=== PATIENT | female | born 2000 | race Caucasian/White ===

== ENCOUNTER → 2023-11-27 15:40 | Outpatient (CLI) | payer OTHER, MEDICAID, SELFPAY ==
--- NOTE | 2023-11-27 15:45 | DI.US.S_ITS ---
PROCEDURE: US SOFT TISSUE HEAD AND NECK INDICATIONS: RIGHT NECK LUMP TECHNIQUE: Real-time scanning was performed of the neck region of interest, with image documentation. COMPARISON: None. FINDINGS: There is a reniform, wider than tall lymph node in the superior right neck at the site of palpable abnormality. It measures up to 0.5 cm in maximal AP diameter, within normal limits. Appropriate trace hilar vascularity. No significant cortical vascular flow. No other sonographic abnormalities in the neck. IMPRESSION: Benign-appearing, normal size lymph node corresponding to the palpable abnormality in the right neck. Dictated by: Miroslava Almaguer M.D. on 11/28/2023 at 9:19 Approved by: Miroslava Almaguer M.D. on 11/28/2023 at 9:21
== END ==
LOC: US 15:44
PROVIDERS: PCP Student in an Organized Health Care Education/Training Program; Referring Provider Student in an Organized Health Care Education/Training Program; Visit Provider Student in an Organized Health Care Education/Training Program
DX: R22.1 Localized swelling, mass and lump, neck (principal)
CPT/HCPCS: 76536

== ENCOUNTER → 2024-09-28 16:05 | Outpatient (CLI) | payer OTHER, SELFPAY ==
[2024-09-28 18:13] LABS: Progesterone, Total 13.80 ng/mL
== END ==
PROVIDERS: Family Provider Student in an Organized Health Care Education/Training Program; PCP Student in an Organized Health Care Education/Training Program; Referring Provider Student in an Organized Health Care Education/Training Program; Visit Provider Student in an Organized Health Care Education/Training Program
DX: N97.0 Female infertility associated with anovulation (principal)
CPT/HCPCS: 36415; 84144

== ENCOUNTER 2024-11-25 08:15 | Outpatient (RCR) | payer OTHER, SELFPAY ==
--- NOTE | 2024-09-23 12:47 | PT.OIE ---
Current Diagnoses Pain in right ankle and joints of right foot (09/23/24) Visit Care Team Role Provider Type Anastasiia Deluca DO Family Provider Non-Staff Primary Care Provider Specialty: Internal Medicine Address: [address] [place], [address] Email: Manish Porras DPM Attending Provider Non-Staff Referring Provider Specialty: Podiatry Address: [address] [place], [address] Email: Physical Therapy Initial Evaluation PT-OP-A Visit Information Start: 09/23/24 09:07 Freq: Status: Active Protocol: Document 09/23/24 09:08 INFO PRINT PRESS OPERATOR (Rec: 09/23/24 11:10 INFO PRINT PRESS OPERATOR Laptop) Out-Patient Physical Therapy Visit Information Visit Information Visit Type Initial Evaluation Visit Start Time 09:05 Visit Stop Time 10:09 Visit Number 1 Number of HEALTHCARE MARKET CONSULTANT Visits 0 Evaluation Information Evaluation Date 09/23/24 PT-OP-B Current Condition Start: 09/23/24 09:07 Freq: Status: Active Protocol: Document 09/23/24 09:08 INFO PRINT PRESS OPERATOR (Rec: 09/23/24 11:10 INFO PRINT PRESS OPERATOR Laptop) Current Condition History of Current Condition Onset Date July 2024 Current Complaints R high ankle sprain, R ankle pain and stiffness History of Current Pt amb into session with antalgic gait pattern without Condition AD and with R supportive ankle brace. Playing pickleball in July, jumped up and landed on R foot and heard it pop 3 times with pain and swelling immediately , went to urgent care and X-ray revealed no fractures, then went to podiatry who stated ankle sprain probably between grade 2-3 and referred to PT. Urgent care gave her a walking boot and crutches to be NWB for first week and then used just walking boot for 3 weeks but caused hip and knee pain. Podiatry gave her a supportive ankle brace on September 02 and has been wearing since and reports ankle feels much better. Has not been taking pain meds or icing, reports she elevates ankle every once in a while. Pt lives in a 3-story town home and has 2 flights of stairs to negotiate with B HRs, reports stairs are most difficult day to day activity to perform, also struggles with donning socks and shoes d/t pain with bending of foot. Prior to injury, pt runs 3x/wk 2-3 miles each, plays volleyball once a week , hiking, and walking on the beach. Prior Treatments and X ray negative for fx Tests Treatment Goals Patient/Caregiver To reduce pain and gain range of motion to return to Goals prior activities PT-OP-C Subjective Start: 09/23/24 09:07 Freq: Status: Active Protocol: Document 09/23/24 09:08 INFO PRINT PRESS OPERATOR (Rec: 09/23/24 11:10 INFO PRINT PRESS OPERATOR Laptop) Patient Questionnaires Lower Extremity Functional Scale LEFS Score 50 LEFS Impairment 20 to 39% Impaired (Score 48-62) OP-PT Pain Assessment Comments Pain Comments Restin/10 R ant ankle Walkin/10 R ant ankle PT-OP-F Manual Assessment Start: 09/23/24 09:07 Freq: Status: Active Protocol: Document 09/23/24 09:08 INFO PRINT PRESS OPERATOR (Rec: 09/23/24 11:10 INFO PRINT PRESS OPERATOR Laptop) Manual Assessments Other Manual Assessments Other Manual normal talus mobility, pain with gentle PA to distal Assessments fibula/lateral malleolus, TTP and decreased soft tissue mobility to fibularis muscles bellies and tendons and ant tib muscle bellies and tendons. Decreased soft tissue mobility to gastroc. Mild-moderate edema to B malleoli lateral>medial with hypersensitivity around lateral malleolus PT-OP-G Mobility & Gait Start: 09/23/24 09:07 Freq: Status: Active Protocol: Document 09/23/24 09:08 INFO PRINT PRESS OPERATOR (Rec: 09/23/24 11:10 INFO PRINT PRESS OPERATOR Laptop) OP Gait Assessment Comments Gait Comments decreased heel strike and toe off of R foot, L hip IR, mild pronation of B feet with decreased arch support bilaterally R impaired>L, slight calcaneal valgus of B feet R>L. PT-OP-K Range of Motion Start: 09/23/24 09:07 Freq: Status: Active Protocol: Document 09/23/24 09:08 INFO PRINT PRESS OPERATOR (Rec: 09/23/24 11:10 INFO PRINT PRESS OPERATOR Laptop) Ankle and Foot Goniometric Range of Motion Ankle and Foot R Ankle/Foot ROM WFL No Testing Position Supine Dorsiflexion with 10 Knee Extended Plantarflexion 30 Inversion 35 Eversion 9 Comments pain to ant ankle with DF/PF, pain to lateral ankle with inversion/eversion L Ankle/Foot ROM WFL Yes Testing Position Supine Dorsiflexion with 22 Knee Extended Plantarflexion 58 Inversion 37 Eversion 15 PT-OP-M Strength Start: 09/23/24 09:07 Freq: Status: Active Protocol: Document 09/23/24 09:08 INFO PRINT PRESS OPERATOR (Rec: 09/23/24 11:10 INFO PRINT PRESS OPERATOR Laptop) Hip Strength Hip Manual Muscle Testing R Flexion (L2) 5 Normal Extension (S1) 4 Good Abduction 4+ Good+ External Rotation 4+ Good+ Internal Rotation 5 Normal Comments AROM WNL L Flexion (L2) 5 Normal Extension (S1) 4 Good Abduction 4+ Good+ External Rotation 5 Normal Internal Rotation 4+ Good+ Comments AROM WNL Knee Strength Knee Manual Muscle Testing R Flexion (S2) 4+ Good+ Extension (L3) 5 Normal Comments AROM WNL L Flexion (S2) 4+ Good+ Extension (L3) 5 Normal Comments AROM WNL Ankle/Foot Strength Ankle and Foot Manual Muscle Testing R Dorsiflexion (L4) 4+ Good+ Plantarflexion (S1) 4+ Good+ Inversion 4 Good Eversion (S1) 3+ Fair+ Comments mild pain with DF, pain with active PF, pain with resisted eversion L Dorsiflexion (L4) 5 Normal Plantarflexion (S1) 5 Normal Inversion 5 Normal Eversion (S1) 5 Normal Toe Strength Toe Manual Muscle Testing Right Great Toe Flexion 4 Good Extension 4 Good Comments pain with resisted ext and flex PT-OP-Q Treatments Start: 09/23/24 09:07 Freq: Status: Active Protocol: Document 09/23/24 09:08 INFO PRINT PRESS OPERATOR (Rec: 09/23/24 11:10 INFO PRINT PRESS OPERATOR Laptop) Therapeutic Exercises Standing Exercises Intrinisc foot Standing Exercise arch lifts, 5 toe ext, 5 toe ext with big toe flex, toe Name spreads Side bilateral Reps/Minutes x10 each Comments HEP with HO Therapeutic Activity Therapeutic Activity RICE Name pt educated on icing and elevation to reduce swelling and inflammation Reps/Minutes 8 mins Comments rec not wearing brace at night with foot supported on pillow PT-OP-T Assessment and Plan Start: 09/23/24 09:07 Freq: Status: Active Protocol: Document 09/23/24 09:08 INFO PRINT PRESS OPERATOR (Rec: 09/23/24 11:10 INFO PRINT PRESS OPERATOR Laptop) Physical Therapy Assessment Rehab Potential Rehabilitation Excellent Potential Evaluation Complexity Number of Personal 1-2 Factors/ Comorbidities Number of Body 1-2 Systems Impaired Clinical Stable Presentation at Evaluation Impairments Impairments Activity Tolerance,Balance,Functional Activities, Functional Mobility,Gait,Pain,ROM,Sensation,Soft Tissue Mobility,Strength Goals 4 Impairment Pain Care Home Goal (LTG) Pt will report ability to hike outside on uneven surface for 1 hour without pain to R ankle. LTG Duration 12 weeks 3 Impairment Stair negotiation Impairment difficulty negotiating 2 flights of stairs in home Short Term Goal (STG Pt will demonstrate ability to negotiate 12x6 stairs ) without HRs with reciprocal pattern ind without pain in order to safely and easily navigate stairs in home. STG Duration 6 weeks 2 Impairment ROM Impairment On eval: R DF 10 active, PF knee extended 30 active L DF 22 active, PF knee extended 58 active Fashion Marketer Goal (LTG) Pt will improve R ankle active DF to at least 20 degrees and PF to at least 50 degrees in order to improve function and return to high activity level. LTG Duration 12 weeks 1 Impairment LEFS Impairment LEFS score on eval 50/80 Fashion Marketer Goal (LTG) Pt will improve LEFS score from 50/80 to 80/80 to demonstrate improved function and ability to return to high level PLOF. LTG Duration 12 weeks Assessment Summary Assessment Pt presents with high mid grade R ankle sprain from pickleball injury in July and found to be impaired in gait pattern, decreased AROM and strength of R ankle and intrinsic foot muscles bilaterally with decreased arch strength, decreased soft tissue mobility with TTP over fibularis muscles, ant tibialis, and gastroc muscles with moderate edema noted to B malleoli lateral >medial, hypersensitivity to light touch around lateral malleolus, and mildly decreased strength to B hip muscles. Although balance not tested this session, pt anticipated to have decreased balance via SLS to RLE based on observations of ankle strength, ROM, and gait pattern. Pt will highly benefit from skilled PT intervention to address impairments and progress towards goals of returning fully to PLOF and sport. Physical Therapy Plan Frequency and Duration Frequency of 1-2x/wk Treatment Duration of 12 treatment (weeks) Plan of Care Start 09/23/24 Date Plan of Care End 12/16/24 Date Therapeutic Interventions Therapeutic Balance Training,Gait Training,Home Exercise Program, Interventions Joint Mobilizations,Manual Therapy,Neuromuscular Re- education,Orthotic/Prosthetic Management,Soft Tissue Mobilization,Taping,Therapeutic Activities,Therapeutic Exercises Modalities Cold Pack/Ice Massage,Hot Packs,Ultrasound Next Visit Focus/Plan Next Note Type Treatment Note Next Visit Plan K taping for edema reduction, gentle 4-way ankle AROM/ iso HEP, review intrinsic foot exercise HEP, STM To gastroc/soleus
--- NOTE | 2024-09-30 12:58 | PT.OTN ---
Current Diagnoses Pain in right ankle and joints of right foot (09/30/24) Physical Therapy Treatment Note PT-OP-A Visit Information Start: 09/23/24 09:07 Freq: Status: Active Protocol: Document 09/30/24 08:19 REIMBURSEMENT REPRESENTATIVE (Rec: 09/30/24 09:08 REIMBURSEMENT REPRESENTATIVE Laptop) Out-Patient Physical Therapy Visit Information Visit Information Visit Type Treatment Note Visit Start Time 08:20 Visit Stop Time 09:05 Visit Number 2 Number of MANAGER TRAVEL Visits 0 Evaluation Information Evaluation Date 09/23/24 PT-OP-B Current Condition Start: 09/23/24 09:07 Freq: Status: Active Protocol: Document 09/23/24 09:08 REIMBURSEMENT REPRESENTATIVE (Rec: 09/23/24 11:10 REIMBURSEMENT REPRESENTATIVE Laptop) Current Condition History of Current Condition Onset Date July 2024 Current Complaints R high ankle sprain, R ankle pain and stiffness History of Current Pt amb into session with antalgic gait pattern without Condition AD and with R supportive ankle brace. Playing pickleball in July, jumped up and landed on R foot and heard it pop 3 times with pain and swelling immediately , went to urgent care and X-ray revealed no fractures, then went to podiatry who stated ankle sprain probably between grade 2-3 and referred to PT. Urgent care gave her a walking boot and crutches to be NWB for first week and then used just walking boot for 3 weeks but caused hip and knee pain. Podiatry gave her a supportive ankle brace on September 02 and has been wearing since and reports ankle feels much better. Has not been taking pain meds or icing, reports she elevates ankle every once in a while. Pt lives in a 3-story town home and has 2 flights of stairs to negotiate with B HRs, reports stairs are most difficult day to day activity to perform, also struggles with donning socks and shoes d/t pain with bending of foot. Prior to injury, pt runs 3x/wk 2-3 miles each, plays volleyball once a week , hiking, and walking on the beach. Prior Treatments and X ray negative for fx Tests Treatment Goals Patient/Caregiver To reduce pain and gain range of motion to return to Goals prior activities PT-OP-C Subjective Start: 09/23/24 09:07 Freq: Status: Active Protocol: Document 09/30/24 08:19 REIMBURSEMENT REPRESENTATIVE (Rec: 09/30/24 09:08 REIMBURSEMENT REPRESENTATIVE Laptop) OP-PT Subjective Patient Comments Patient Comments Pt amb into session without brace, reports has not worn it yesterday or today with being extra careful, some soreness at end of day yesterday but without pain walking in today. PT-OP-F Manual Assessment Start: 09/23/24 09:07 Freq: Status: Active Protocol: Document 09/23/24 09:08 REIMBURSEMENT REPRESENTATIVE (Rec: 09/23/24 11:10 REIMBURSEMENT REPRESENTATIVE Laptop) Manual Assessments Other Manual Assessments Other Manual normal talus mobility, pain with gentle PA to distal Assessments fibula/lateral malleolus, TTP and decreased soft tissue mobility to fibularis muscles bellies and tendons and ant tib muscle bellies and tendons. Decreased soft tissue mobility to gastroc. Mild-moderate edema to B malleoli lateral>medial with hypersensitivity around lateral malleolus PT-OP-G Mobility & Gait Start: 09/23/24 09:07 Freq: Status: Active Protocol: Document 09/23/24 09:08 REIMBURSEMENT REPRESENTATIVE (Rec: 09/23/24 11:10 REIMBURSEMENT REPRESENTATIVE Laptop) OP Gait Assessment Comments Gait Comments decreased heel strike and toe off of R foot, L hip IR, mild pronation of B feet with decreased arch support bilaterally R impaired>L, slight calcaneal valgus of B feet R>L. PT-OP-K Range of Motion Start: 09/23/24 09:07 Freq: Status: Active Protocol: Document 09/23/24 09:08 REIMBURSEMENT REPRESENTATIVE (Rec: 09/23/24 11:10 REIMBURSEMENT REPRESENTATIVE Laptop) Ankle and Foot Goniometric Range of Motion Ankle and Foot R Ankle/Foot ROM WFL No Testing Position Supine Dorsiflexion with 10 Knee Extended Plantarflexion 30 Inversion 35 Eversion 9 Comments pain to ant ankle with DF/PF, pain to lateral ankle with inversion/eversion L Ankle/Foot ROM WFL Yes Testing Position Supine Dorsiflexion with 22 Knee Extended Plantarflexion 58 Inversion 37 Eversion 15 PT-OP-M Strength Start: 09/23/24 09:07 Freq: Status: Active Protocol: Document 09/23/24 09:08 REIMBURSEMENT REPRESENTATIVE (Rec: 09/23/24 11:10 REIMBURSEMENT REPRESENTATIVE Laptop) Hip Strength Hip Manual Muscle Testing R Flexion (L2) 5 Normal Extension (S1) 4 Good Abduction 4+ Good+ External Rotation 4+ Good+ Internal Rotation 5 Normal Comments AROM WNL L Flexion (L2) 5 Normal Extension (S1) 4 Good Abduction 4+ Good+ External Rotation 5 Normal Internal Rotation 4+ Good+ Comments AROM WNL Knee Strength Knee Manual Muscle Testing R Flexion (S2) 4+ Good+ Extension (L3) 5 Normal Comments AROM WNL L Flexion (S2) 4+ Good+ Extension (L3) 5 Normal Comments AROM WNL Ankle/Foot Strength Ankle and Foot Manual Muscle Testing R Dorsiflexion (L4) 4+ Good+ Plantarflexion (S1) 4+ Good+ Inversion 4 Good Eversion (S1) 3+ Fair+ Comments mild pain with DF, pain with active PF, pain with resisted eversion L Dorsiflexion (L4) 5 Normal Plantarflexion (S1) 5 Normal Inversion 5 Normal Eversion (S1) 5 Normal Toe Strength Toe Manual Muscle Testing Right Great Toe Flexion 4 Good Extension 4 Good Comments pain with resisted ext and flex PT-OP-Q Treatments Start: 09/23/24 09:07 Freq: Status: Active Protocol: Document 09/30/24 08:19 REIMBURSEMENT REPRESENTATIVE (Rec: 09/30/24 09:08 REIMBURSEMENT REPRESENTATIVE Laptop) Therapeutic Exercises Supine Exercises 4-way ankle Side left Equipment Used L1 TB Reps/Minutes x10 Comments x10 AROM no pain, x10 with L1 TB no pain, HEP HO given with band Standing Exercises Intrinisc foot Standing Exercise arch lifts, 5 toe ext, 5 toe ext with big toe flex, toe Name spreads Side left Comments HEP review Manual Therapy Treatment Consent Patient gave verbal Yes consent for manual treatment Soft Tissue Mobilization post leg Body Location L gastroc/achilles Mobilization Type Myofascial Release,Rolling,Trigger Point Release Intensity/Depth Moderate Body Position Prone ant tib Body Location L ant tib,/peroneals Mobilization Type Rolling Intensity/Depth Moderate Body Position Supine Taping Edema Body Location L ankle Treatment Focus reducing edema Type of Tape K tape Comments 2 strips with 1 anchor and 4 tails wrapped from post ankle over lateral and medial malleolus to ant/lateral foot without stretch PT-OP-T Assessment and Plan Start: 09/23/24 09:07 Freq: Status: Active Protocol: Document 09/30/24 08:19 REIMBURSEMENT REPRESENTATIVE (Rec: 09/30/24 09:08 REIMBURSEMENT REPRESENTATIVE Laptop) Physical Therapy Assessment Goals 4 Impairment Pain Cashier Clerk Goal (LTG) Pt will report ability to hike outside on uneven surface for 1 hour without pain to R ankle. LTG Duration 12 weeks 3 Impairment Stair negotiation Impairment difficulty negotiating 2 flights of stairs in home Short Term Goal (STG Pt will demonstrate ability to negotiate 12x6 stairs ) without HRs with reciprocal pattern ind without pain in order to safely and easily navigate stairs in home. STG Duration 6 weeks 2 Impairment ROM Impairment On eval: R DF 10 active, PF knee extended 30 active L DF 22 active, PF knee extended 58 active Jail Goal (LTG) Pt will improve R ankle active DF to at least 20 degrees and PF to at least 50 degrees in order to improve function and return to high activity level. LTG Duration 12 weeks 1 Impairment LEFS Impairment LEFS score on eval 50/80 Cashier Clerk Goal (LTG) Pt will improve LEFS score from 50/80 to 80/80 to demonstrate improved function and ability to return to high level PLOF. LTG Duration 12 weeks Assessment Summary Assessment Pt tolerated STM to ant tib and gastroc/achilles well. Pt also tolerated L 4-way ankle exercises with L1 TB without pain and given HEP HO. Taping applied to reduce edema. Physical Therapy Plan Frequency and Duration Frequency of 1-2x/wk Treatment Duration of 12 treatment (weeks) Plan of Care Start 09/23/24 Date Plan of Care End 12/16/24 Date Therapeutic Interventions Therapeutic Balance Training,Gait Training,Home Exercise Program, Interventions Joint Mobilizations,Manual Therapy,Neuromuscular Re- education,Orthotic/Prosthetic Management,Soft Tissue Mobilization,Taping,Therapeutic Activities,Therapeutic Exercises Modalities Cold Pack/Ice Massage,Hot Packs,Ultrasound Next Visit Focus/Plan Next Note Type Treatment Note Next Visit Plan Check progress from edema taping, Cupping to L gastroc/ soleus, IASTM to L achilles, standing gastroc stretching, B hip strength exercises
--- NOTE | 2024-10-13 09:51 | PT.OTN ---
Current Diagnoses Pain in right ankle and joints of right foot (10/13/24) Physical Therapy Treatment Note PT-OP-A Visit Information Start: 09/23/24 09:07 Freq: Status: Active Protocol: Document 10/13/24 08:17 AB (Rec: 10/13/24 09:23 AB [id number]) Out-Patient Physical Therapy Visit Information Visit Information Visit Type Treatment Note Visit Note Access Code [id number] Visit Start Time 08:20 Visit Stop Time 09:01 Visit Number 3 (PN 10/23/2024) Number of SENIOR EMBEDDED SOFTWARE ENGINEER Visits 1 PT-OP-B Current Condition Start: 09/23/24 09:07 Freq: Status: Active Protocol: Document 09/23/24 09:08 TOOL REPAIRER (Rec: 09/23/24 11:10 TOOL REPAIRER Laptop) Current Condition History of Current Condition Onset Date July 2024 Current Complaints R high ankle sprain, R ankle pain and stiffness History of Current Pt amb into session with antalgic gait pattern without Condition AD and with R supportive ankle brace. Playing pickleball in July, jumped up and landed on R foot and heard it pop 3 times with pain and swelling immediately , went to urgent care and X-ray revealed no fractures, then went to podiatry who stated ankle sprain probably between grade 2-3 and referred to PT. Urgent care gave her a walking boot and crutches to be NWB for first week and then used just walking boot for 3 weeks but caused hip and knee pain. Podiatry gave her a supportive ankle brace on September 02 and has been wearing since and reports ankle feels much better. Has not been taking pain meds or icing, reports she elevates ankle every once in a while. Pt lives in a 3-story town home and has 2 flights of stairs to negotiate with B HRs, reports stairs are most difficult day to day activity to perform, also struggles with donning socks and shoes d/t pain with bending of foot. Prior to injury, pt runs 3x/wk 2-3 miles each, plays volleyball once a week , hiking, and walking on the beach. Prior Treatments and X ray negative for fx Tests Treatment Goals Patient/Caregiver To reduce pain and gain range of motion to return to Goals prior activities PT-OP-C Subjective Start: 09/23/24 09:07 Freq: Status: Active Protocol: Document 10/13/24 08:17 AB (Rec: 10/13/24 09:23 AB [id number]) OP-PT Subjective Patient Comments Patient Comments Patient reports she feels a lot better, accidentally jumped on a bare foot and it hurt. Patient reports having no pain ambulating into session, also reports inflammation has decreased, but may have gone up since the jump. PT-OP-F Manual Assessment Start: 09/23/24 09:07 Freq: Status: Active Protocol: Document 09/23/24 09:08 TOOL REPAIRER (Rec: 09/23/24 11:10 TOOL REPAIRER Laptop) Manual Assessments Other Manual Assessments Other Manual normal talus mobility, pain with gentle PA to distal Assessments fibula/lateral malleolus, TTP and decreased soft tissue mobility to fibularis muscles bellies and tendons and ant tib muscle bellies and tendons. Decreased soft tissue mobility to gastroc. Mild-moderate edema to B malleoli lateral>medial with hypersensitivity around lateral malleolus PT-OP-G Mobility & Gait Start: 09/23/24 09:07 Freq: Status: Active Protocol: Document 09/23/24 09:08 TOOL REPAIRER (Rec: 09/23/24 11:10 TOOL REPAIRER Laptop) OP Gait Assessment Comments Gait Comments decreased heel strike and toe off of R foot, L hip IR, mild pronation of B feet with decreased arch support bilaterally R impaired>L, slight calcaneal valgus of B feet R>L. PT-OP-K Range of Motion Start: 09/23/24 09:07 Freq: Status: Active Protocol: Document 09/23/24 09:08 TOOL REPAIRER (Rec: 09/23/24 11:10 TOOL REPAIRER Laptop) Ankle and Foot Goniometric Range of Motion Ankle and Foot R Ankle/Foot ROM WFL No Testing Position Supine Dorsiflexion with 10 Knee Extended Plantarflexion 30 Inversion 35 Eversion 9 Comments pain to ant ankle with DF/PF, pain to lateral ankle with inversion/eversion L Ankle/Foot ROM WFL Yes Testing Position Supine Dorsiflexion with 22 Knee Extended Plantarflexion 58 Inversion 37 Eversion 15 PT-OP-M Strength Start: 09/23/24 09:07 Freq: Status: Active Protocol: Document 09/23/24 09:08 TOOL REPAIRER (Rec: 09/23/24 11:10 TOOL REPAIRER Laptop) Hip Strength Hip Manual Muscle Testing R Flexion (L2) 5 Normal Extension (S1) 4 Good Abduction 4+ Good+ External Rotation 4+ Good+ Internal Rotation 5 Normal Comments AROM WNL L Flexion (L2) 5 Normal Extension (S1) 4 Good Abduction 4+ Good+ External Rotation 5 Normal Internal Rotation 4+ Good+ Comments AROM WNL Knee Strength Knee Manual Muscle Testing R Flexion (S2) 4+ Good+ Extension (L3) 5 Normal Comments AROM WNL L Flexion (S2) 4+ Good+ Extension (L3) 5 Normal Comments AROM WNL Ankle/Foot Strength Ankle and Foot Manual Muscle Testing R Dorsiflexion (L4) 4+ Good+ Plantarflexion (S1) 4+ Good+ Inversion 4 Good Eversion (S1) 3+ Fair+ Comments mild pain with DF, pain with active PF, pain with resisted eversion L Dorsiflexion (L4) 5 Normal Plantarflexion (S1) 5 Normal Inversion 5 Normal Eversion (S1) 5 Normal Toe Strength Toe Manual Muscle Testing Right Great Toe Flexion 4 Good Extension 4 Good Comments pain with resisted ext and flex PT-OP-Q Treatments Start: 09/23/24 09:07 Freq: Status: Active Protocol: Document 10/13/24 08:17 AB (Rec: 10/13/24 09:23 AB [id number]) Therapeutic Exercises Supine Exercises AROMDF Supine Exercise Name post calf stretches Side bilateral Reps/Minutes X 15 Comments verbal cues and visual cues Standing Exercises squats Side bilateral Reps/Minutes X 15 Comments verbal and visual cues heel raise Standing Exercise bilateral on stairs HEP Name Reps/Minutes X10 X 2 Comments PT ed rationale of lowering heels slowly calf stretch on stairs Standing Exercise gastroc and soelus HEP Name Side bilateral Reps/Minutes 60 sec X 2 Comments verbal cues Manual Therapy Treatment Consent Patient gave verbal Yes consent for manual treatment Soft Tissue Mobilization post leg Body Location R gastroc and achiles Mobilization Type Cross-Friction,Instrument Assisted,Rolling Intensity/Depth Moderate Body Position Prone Comments cupping with DF/PF with cups on soleus heel raise in standing cups on gastroc ant tib Body Location r ant tib,/peroneals, ant R ankle Mobilization Type Cross-Friction,Instrument Assisted,Rolling Intensity/Depth Moderate Body Position Supine Comments cupping ant/med ankle with toe flex ext and DF PF Joint Mobilizations MWM TC mobilization Joint R Direction ap Grade IV Body Position Standing Reps/Duration X 10 X 3 PT-OP-T Assessment and Plan Start: 09/23/24 09:07 Freq: Status: Active Protocol: Document 10/13/24 08:17 AB (Rec: 10/13/24 09:23 AB [id number]) Physical Therapy Assessment Goals 4 Impairment Pain Residential Goal (LTG) Pt will report ability to hike outside on uneven surface for 1 hour without pain to R ankle. LTG Duration 12 weeks 3 Impairment Stair negotiation Impairment difficulty negotiating 2 flights of stairs in home Short Term Goal (STG Pt will demonstrate ability to negotiate 12x6 stairs ) without HRs with reciprocal pattern ind without pain in order to safely and easily navigate stairs in home. STG Duration 6 weeks 2 Impairment ROM Impairment On eval: R DF 10 active, PF knee extended 30 active L DF 22 active, PF knee extended 58 active Residential Goal (LTG) Pt will improve R ankle active DF to at least 20 degrees and PF to at least 50 degrees in order to improve function and return to high activity level. LTG Duration 12 weeks 1 Impairment LEFS Impairment LEFS score on eval 50/80 Residential Goal (LTG) Pt will improve LEFS score from 50/80 to 80/80 to demonstrate improved function and ability to return to high level PLOF. LTG Duration 12 weeks Assessment Summary Assessment Patient reports ankle feels good end of session. No visible swelling noted this session. Physical Therapy Plan Frequency and Duration Frequency of 1-2x/wk Treatment Duration of 12 treatment (weeks) Plan of Care Start 09/23/24 Date Plan of Care End 12/16/24 Date Next Visit Focus/Plan Next Note Type Treatment Note Next Visit Plan Check progress from edema taping, Cupping to L gastroc/ soleus, IASTM to L achilles, standing gastroc stretching, B hip strength exercises, Possibly balance, jumps on shuttle recovery.
--- NOTE | 2024-10-15 09:02 | PT.OTN ---
Addendum entered and electronically signed by Bere Harrison, DIRECTOR OF PHYSICAL SECURITY 10/15/24 16:26: Add more appts next tx. Original Note: Current Diagnoses Pain in right ankle and joints of right foot (10/15/24) Physical Therapy Treatment Note PT-OP-A Visit Information Start: 09/23/24 09:07 Freq: Status: Active Protocol: Document 10/15/24 08:18 SP (Rec: 10/15/24 09:07 SP [id number]) Out-Patient Physical Therapy Visit Information Visit Information Visit Type Treatment Note Visit Start Time 08:18 Visit Stop Time 09:02 Visit Number 4 (PN 10/23/2024) Number of DIRECTOR OF PHYSICAL SECURITY Visits 2 PT-OP-B Current Condition Start: 09/23/24 09:07 Freq: Status: Active Protocol: Document 09/23/24 09:08 EQUINE MANAGER (Rec: 09/23/24 11:10 EQUINE MANAGER Laptop) Current Condition History of Current Condition Onset Date July 2024 Current Complaints R high ankle sprain, R ankle pain and stiffness History of Current Pt amb into session with antalgic gait pattern without Condition AD and with R supportive ankle brace. Playing pickleball in July, jumped up and landed on R foot and heard it pop 3 times with pain and swelling immediately , went to urgent care and X-ray revealed no fractures, then went to podiatry who stated ankle sprain probably between grade 2-3 and referred to PT. Urgent care gave her a walking boot and crutches to be NWB for first week and then used just walking boot for 3 weeks but caused hip and knee pain. Podiatry gave her a supportive ankle brace on September 02 and has been wearing since and reports ankle feels much better. Has not been taking pain meds or icing, reports she elevates ankle every once in a while. Pt lives in a 3-story town home and has 2 flights of stairs to negotiate with B HRs, reports stairs are most difficult day to day activity to perform, also struggles with donning socks and shoes d/t pain with bending of foot. Prior to injury, pt runs 3x/wk 2-3 miles each, plays volleyball once a week , hiking, and walking on the beach. Prior Treatments and X ray negative for fx Tests Treatment Goals Patient/Caregiver To reduce pain and gain range of motion to return to Goals prior activities PT-OP-C Subjective Start: 09/23/24 09:07 Freq: Status: Active Protocol: Document 10/15/24 08:18 SP (Rec: 10/15/24 09:07 SP [id number]) OP-PT Subjective Patient Comments Patient Comments Pt reports calves were little sore but ok, only got to doing squats 1 since last tx. States the calf stretch with knee bend is hard but feels ok. PT-OP-F Manual Assessment Start: 09/23/24 09:07 Freq: Status: Active Protocol: Document 09/23/24 09:08 EQUINE MANAGER (Rec: 09/23/24 11:10 EQUINE MANAGER Laptop) Manual Assessments Other Manual Assessments Other Manual normal talus mobility, pain with gentle PA to distal Assessments fibula/lateral malleolus, TTP and decreased soft tissue mobility to fibularis muscles bellies and tendons and ant tib muscle bellies and tendons. Decreased soft tissue mobility to gastroc. Mild-moderate edema to B malleoli lateral>medial with hypersensitivity around lateral malleolus PT-OP-G Mobility & Gait Start: 09/23/24 09:07 Freq: Status: Active Protocol: Document 09/23/24 09:08 EQUINE MANAGER (Rec: 09/23/24 11:10 EQUINE MANAGER Laptop) OP Gait Assessment Comments Gait Comments decreased heel strike and toe off of R foot, L hip IR, mild pronation of B feet with decreased arch support bilaterally R impaired>L, slight calcaneal valgus of B feet R>L. PT-OP-K Range of Motion Start: 09/23/24 09:07 Freq: Status: Active Protocol: Document 09/23/24 09:08 EQUINE MANAGER (Rec: 09/23/24 11:10 EQUINE MANAGER Laptop) Ankle and Foot Goniometric Range of Motion Ankle and Foot R Ankle/Foot ROM WFL No Testing Position Supine Dorsiflexion with 10 Knee Extended Plantarflexion 30 Inversion 35 Eversion 9 Comments pain to ant ankle with DF/PF, pain to lateral ankle with inversion/eversion L Ankle/Foot ROM WFL Yes Testing Position Supine Dorsiflexion with 22 Knee Extended Plantarflexion 58 Inversion 37 Eversion 15 PT-OP-M Strength Start: 09/23/24 09:07 Freq: Status: Active Protocol: Document 09/23/24 09:08 EQUINE MANAGER (Rec: 09/23/24 11:10 EQUINE MANAGER Laptop) Hip Strength Hip Manual Muscle Testing R Flexion (L2) 5 Normal Extension (S1) 4 Good Abduction 4+ Good+ External Rotation 4+ Good+ Internal Rotation 5 Normal Comments AROM WNL L Flexion (L2) 5 Normal Extension (S1) 4 Good Abduction 4+ Good+ External Rotation 5 Normal Internal Rotation 4+ Good+ Comments AROM WNL Knee Strength Knee Manual Muscle Testing R Flexion (S2) 4+ Good+ Extension (L3) 5 Normal Comments AROM WNL L Flexion (S2) 4+ Good+ Extension (L3) 5 Normal Comments AROM WNL Ankle/Foot Strength Ankle and Foot Manual Muscle Testing R Dorsiflexion (L4) 4+ Good+ Plantarflexion (S1) 4+ Good+ Inversion 4 Good Eversion (S1) 3+ Fair+ Comments mild pain with DF, pain with active PF, pain with resisted eversion L Dorsiflexion (L4) 5 Normal Plantarflexion (S1) 5 Normal Inversion 5 Normal Eversion (S1) 5 Normal Toe Strength Toe Manual Muscle Testing Right Great Toe Flexion 4 Good Extension 4 Good Comments pain with resisted ext and flex PT-OP-Q Treatments Start: 09/23/24 09:07 Freq: Status: Active Protocol: Document 10/15/24 08:18 SP (Rec: 10/15/24 09:07 SP [id number]) Therapeutic Exercises Standing Exercises Knee mobility on step Standing Exercise added to HEP (declined HO) Name Side right Resistance floor then BOSU Reps/Minutes 5 reps Comments tarsal mobiltiy knee passed toe- improved no anterior ankle pinch calf stre SL star taps Standing Exercise added to HEp (declined HO)- no shoe/on floor Name Side right Resistance 12, 9, 6 o'clock- good work challenge Reps/Minutes 5 sets each direction Comments little discomfort lateral ankle when bal off side but recorrects feel fine squats Side bilateral Equipment Used mirror use alignment Reps/Minutes 10 reps end tx Comments good form, no pain- discussed perform after manual, ankle mob HEP heel raise Standing Exercise bilateral on stairs HEP Name Reps/Minutes X10 X 2 Comments PT ed rationale of lowering heels slowly calf stretch on stairs Standing Exercise gastroc and soelus HEP Name Side bilateral Reps/Minutes 60 sec X 2 Comments verbal cues Other Exercises Self STMs Other Exercise Name ed self: R achilles and calf- good response Comments self STMs rolling pin calf, MWM achilles pincer grasp and knead, tooling Manual Therapy Treatment Soft Tissue Mobilization post leg Body Location R gastroc and achiles Mobilization Type Cross-Friction,Instrument Assisted,Rolling Intensity/Depth Moderate Body Position Prone Comments manual and ed self STMs rolling pin calf, tooling manual and self, MWM achilles pincer grasp and knead, tooling achilles. ant tib Body Location R ant tib,/peroneals Mobilization Type Cross-Friction,Instrument Assisted,Rolling Intensity/Depth Moderate Body Position Supine Comments cupping ant/med ankle with toe flex ext and DF PF Taping R calf, arch, achilles Comments 2 strips: 1 arch support, 2nd heel superior to calf applied on 50% tension- ed seated with ed self application each- understood Self-Care/Home Management Treatment Education Other Education education on self manual, tarsal mobility knee over toe 2nd step, added SL star taps. PT-OP-T Assessment and Plan Start: 09/23/24 09:07 Freq: Status: Active Protocol: Document 10/15/24 08:18 SP (Rec: 10/15/24 09:07 SP [id number]) Physical Therapy Assessment Goals 4 Impairment Pain Snf Goal (LTG) Pt will report ability to hike outside on uneven surface for 1 hour without pain to R ankle. LTG Duration 12 weeks 3 Impairment Stair negotiation Impairment difficulty negotiating 2 flights of stairs in home Short Term Goal (STG Pt will demonstrate ability to negotiate 12x6 stairs ) without HRs with reciprocal pattern ind without pain in order to safely and easily navigate stairs in home. STG Duration 6 weeks 2 Impairment ROM Impairment On eval: R DF 10 active, PF knee extended 30 active L DF 22 active, PF knee extended 58 active Applications Engineer Manufacturing Goal (LTG) Pt will improve R ankle active DF to at least 20 degrees and PF to at least 50 degrees in order to improve function and return to high activity level. LTG Duration 12 weeks 1 Impairment LEFS Impairment LEFS score on eval 50/80 Applications Engineer Manufacturing Goal (LTG) Pt will improve LEFS score from 50/80 to 80/80 to demonstrate improved function and ability to return to high level PLOF. LTG Duration 12 weeks Assessment Summary Assessment Pt good feedback response to manual, ed self a ppliy and manual ball rolling calf pickle ball use for home carryover. Added star taps for SL progression strength with good response, declined HO. Physical Therapy Plan Frequency and Duration Frequency of 1-2x/wk Treatment Duration of 12 treatment (weeks) Plan of Care Start 09/23/24 Date Plan of Care End 12/16/24 Date Therapeutic Interventions Therapeutic Balance Training,Gait Training,Home Exercise Program, Interventions Joint Mobilizations,Manual Therapy,Neuromuscular Re- education,Orthotic/Prosthetic Management,Soft Tissue Mobilization,Taping,Therapeutic Activities,Therapeutic Exercises Modalities Cold Pack/Ice Massage,Hot Packs,Ultrasound Next Visit Focus/Plan Next Note Type Treatment Note Next Visit Plan Check progress from edema taping, Cupping to L gastroc/ soleus, IASTM to L achilles, standing gastroc stretching, B hip strength exercises, Possibly balance, next jumps on shuttle recovery end tx post manual.
--- NOTE | 2024-10-20 20:41 | PT.OTN ---
Current Diagnoses Pain in right ankle and joints of right foot (10/20/24) Physical Therapy Treatment Note PT-OP-A Visit Information Start: 09/23/24 09:07 Freq: Status: Active Protocol: Document 10/20/24 09:11 BIOCHEMISTRY PROFESSOR (Rec: 10/20/24 09:52 BIOCHEMISTRY PROFESSOR Laptop) Out-Patient Physical Therapy Visit Information Visit Information Visit Type Progress Note Visit Start Time 09:08 Visit Stop Time 09:50 Visit Number 5 Number of ELEMENTARY PRINCIPAL Visits 0 PT-OP-B Current Condition Start: 09/23/24 09:07 Freq: Status: Active Protocol: Document 09/23/24 09:08 BIOCHEMISTRY PROFESSOR (Rec: 09/23/24 11:10 BIOCHEMISTRY PROFESSOR Laptop) Current Condition History of Current Condition Onset Date July 2024 Current Complaints R high ankle sprain, R ankle pain and stiffness History of Current Pt amb into session with antalgic gait pattern without Condition AD and with R supportive ankle brace. Playing pickleball in July, jumped up and landed on R foot and heard it pop 3 times with pain and swelling immediately , went to urgent care and X-ray revealed no fractures, then went to podiatry who stated ankle sprain probably between grade 2-3 and referred to PT. Urgent care gave her a walking boot and crutches to be NWB for first week and then used just walking boot for 3 weeks but caused hip and knee pain. Podiatry gave her a supportive ankle brace on September 02 and has been wearing since and reports ankle feels much better. Has not been taking pain meds or icing, reports she elevates ankle every once in a while. Pt lives in a 3-story town home and has 2 flights of stairs to negotiate with B HRs, reports stairs are most difficult day to day activity to perform, also struggles with donning socks and shoes d/t pain with bending of foot. Prior to injury, pt runs 3x/wk 2-3 miles each, plays volleyball once a week , hiking, and walking on the beach. Prior Treatments and X ray negative for fx Tests Treatment Goals Patient/Caregiver To reduce pain and gain range of motion to return to Goals prior activities PT-OP-C Subjective Start: 09/23/24 09:07 Freq: Status: Active Protocol: Document 10/20/24 09:11 BIOCHEMISTRY PROFESSOR (Rec: 10/20/24 20:30 BIOCHEMISTRY PROFESSOR Laptop) OP-PT Subjective Patient Comments Patient Comments Pt reports overall improvement in pain and strength to ankle but attempted hiking and stepped on a rock which pushed her foot into DF and felt pain to ant ankle. She also reports increased edema to ankle over last few days but currently has 0/10 pain with ambulation and without supportive brace. Did not like last taping of calf PT-OP-F Manual Assessment Start: 09/23/24 09:07 Freq: Status: Active Protocol: Document 09/23/24 09:08 BIOCHEMISTRY PROFESSOR (Rec: 09/23/24 11:10 BIOCHEMISTRY PROFESSOR Laptop) Manual Assessments Other Manual Assessments Other Manual normal talus mobility, pain with gentle PA to distal Assessments fibula/lateral malleolus, TTP and decreased soft tissue mobility to fibularis muscles bellies and tendons and ant tib muscle bellies and tendons. Decreased soft tissue mobility to gastroc. Mild-moderate edema to B malleoli lateral>medial with hypersensitivity around lateral malleolus PT-OP-G Mobility & Gait Start: 09/23/24 09:07 Freq: Status: Active Protocol: Document 09/23/24 09:08 BIOCHEMISTRY PROFESSOR (Rec: 09/23/24 11:10 BIOCHEMISTRY PROFESSOR Laptop) OP Gait Assessment Comments Gait Comments decreased heel strike and toe off of R foot, L hip IR, mild pronation of B feet with decreased arch support bilaterally R impaired>L, slight calcaneal valgus of B feet R>L. PT-OP-K Range of Motion Start: 09/23/24 09:07 Freq: Status: Active Protocol: Document 09/23/24 09:08 BIOCHEMISTRY PROFESSOR (Rec: 09/23/24 11:10 BIOCHEMISTRY PROFESSOR Laptop) Ankle and Foot Goniometric Range of Motion Ankle and Foot R Ankle/Foot ROM WFL No Testing Position Supine Dorsiflexion with 10 Knee Extended Plantarflexion 30 Inversion 35 Eversion 9 Comments pain to ant ankle with DF/PF, pain to lateral ankle with inversion/eversion L Ankle/Foot ROM WFL Yes Testing Position Supine Dorsiflexion with 22 Knee Extended Plantarflexion 58 Inversion 37 Eversion 15 PT-OP-M Strength Start: 09/23/24 09:07 Freq: Status: Active Protocol: Document 09/23/24 09:08 BIOCHEMISTRY PROFESSOR (Rec: 09/23/24 11:10 BIOCHEMISTRY PROFESSOR Laptop) Hip Strength Hip Manual Muscle Testing R Flexion (L2) 5 Normal Extension (S1) 4 Good Abduction 4+ Good+ External Rotation 4+ Good+ Internal Rotation 5 Normal Comments AROM WNL L Flexion (L2) 5 Normal Extension (S1) 4 Good Abduction 4+ Good+ External Rotation 5 Normal Internal Rotation 4+ Good+ Comments AROM WNL Knee Strength Knee Manual Muscle Testing R Flexion (S2) 4+ Good+ Extension (L3) 5 Normal Comments AROM WNL L Flexion (S2) 4+ Good+ Extension (L3) 5 Normal Comments AROM WNL Ankle/Foot Strength Ankle and Foot Manual Muscle Testing R Dorsiflexion (L4) 4+ Good+ Plantarflexion (S1) 4+ Good+ Inversion 4 Good Eversion (S1) 3+ Fair+ Comments mild pain with DF, pain with active PF, pain with resisted eversion L Dorsiflexion (L4) 5 Normal Plantarflexion (S1) 5 Normal Inversion 5 Normal Eversion (S1) 5 Normal Toe Strength Toe Manual Muscle Testing Right Great Toe Flexion 4 Good Extension 4 Good Comments pain with resisted ext and flex PT-OP-Q Treatments Start: 09/23/24 09:07 Freq: Status: Active Protocol: Document 10/20/24 09:11 BIOCHEMISTRY PROFESSOR (Rec: 10/20/24 20:30 BIOCHEMISTRY PROFESSOR Laptop) Manual Therapy Treatment Consent Patient gave verbal Yes consent for manual treatment Soft Tissue Mobilization ant tib Body Location R ant tib,/peroneals Mobilization Type Rolling Intensity/Depth Moderate Body Position Supine Joint Mobilizations Talus Joint talocrural Direction ant-post Grade III Body Position Hooklying Reps/Duration x10 Taping Edema Body Location L ankle Treatment Focus reducing edema Type of Tape K tape Comments 2 strips with 1 anchor and 4 tails wrapped from post ankle over lateral and medial malleolus to ant/lateral foot without stretch PT-OP-T Assessment and Plan Start: 09/23/24 09:07 Freq: Status: Active Protocol: Document 10/20/24 09:11 BIOCHEMISTRY PROFESSOR (Rec: 10/20/24 09:52 BIOCHEMISTRY PROFESSOR Laptop) Physical Therapy Assessment Goals 4 Impairment Pain Longterm Goal (LTG) Pt will report ability to hike outside on uneven surface for 1 hour without pain to R ankle. 10/20: Progressing, went on 10/09 (1.5 weeks ago) with pain to R ankle when stepped on rock. LTG Duration 12 weeks 3 Impairment Stair negotiation Impairment difficulty negotiating 2 flights of stairs in home Short Term Goal (STG Pt will demonstrate ability to negotiate 12x6 stairs ) without HRs with reciprocal pattern ind without pain in order to safely and easily navigate stairs in home. 10/20: MET, reports able to perform at home without pain. STG Duration 6 weeks MET 2 Impairment ROM Impairment On eval: R DF 10 active, PF knee extended 30 active L DF 22 active, PF knee extended 58 active General Manager [employer] Goal (LTG) Pt will improve R ankle active DF to at least 20 degrees and PF to at least 50 degrees in order to improve function and return to high activity level. 10/20: Progressing, R active DF 19 degrees pain free, R active PF 45 degrees mild stretch pain LTG Duration 12 weeks 1 Impairment LEFS Impairment LEFS score on eval 50/80 Longterm Goal (LTG) Pt will improve LEFS score from 50/80 to 80/80 to demonstrate improved function and ability to return to high level PLOF. 10/20: Progressing, 62/80 LTG Duration 12 weeks Assessment Summary Assessment Pt with positive response to manual therapy and performed edema taping to ankle to reduce edema to improve ROM, recommended pt elevate leg after increased activity. Pt is progressing well towards goals still with pain during hiking trial but improving per report since starting PT, met goal for stairs without pain per pt report, improved active DF from 10 to 19 degrees without pain and PF from 30 to 45 degrees without pain but still not meeting goal as yet, and improved her LEFS score from 50/80 to 62/80 to demonstrate decreased disability. Pt will still benefit from continued PT to progress towards goals. Physical Therapy Plan Frequency and Duration Frequency of 1-2x/wk Treatment Duration of 12 treatment (weeks) Plan of Care Start 09/23/24 Date Plan of Care End 12/16/24 Date Next Visit Focus/Plan Next Note Type Treatment Note Next Visit Plan talus mobs and STM/cupping to ant tib as needed, shuttle balance, shuttle recovery single leg with jumping trial as tolerated
--- NOTE | 2024-10-22 10:04 | PT.OTN ---
Current Diagnoses Pain in right ankle and joints of right foot (10/22/24) Physical Therapy Treatment Note PT-OP-A Visit Information Start: 09/23/24 09:07 Freq: Status: Active Protocol: Document 10/22/24 09:24 SP (Rec: 10/22/24 10:43 SP [id number]) Out-Patient Physical Therapy Visit Information Visit Information Visit Type Treatment Note Visit Start Time 09:24 Visit Stop Time 10:04 Visit Number 6 Number of SAP TECHNICAL ARCHITECT Visits 1 Progress Note Due 11/20/24 PT-OP-B Current Condition Start: 09/23/24 09:07 Freq: Status: Active Protocol: Document 09/23/24 09:08 RUNNING RIGGER (Rec: 09/23/24 11:10 RUNNING RIGGER Laptop) Current Condition History of Current Condition Onset Date July 2024 Current Complaints R high ankle sprain, R ankle pain and stiffness History of Current Pt amb into session with antalgic gait pattern without Condition AD and with R supportive ankle brace. Playing pickleball in July, jumped up and landed on R foot and heard it pop 3 times with pain and swelling immediately , went to urgent care and X-ray revealed no fractures, then went to podiatry who stated ankle sprain probably between grade 2-3 and referred to PT. Urgent care gave her a walking boot and crutches to be NWB for first week and then used just walking boot for 3 weeks but caused hip and knee pain. Podiatry gave her a supportive ankle brace on September 02 and has been wearing since and reports ankle feels much better. Has not been taking pain meds or icing, reports she elevates ankle every once in a while. Pt lives in a 3-story town home and has 2 flights of stairs to negotiate with B HRs, reports stairs are most difficult day to day activity to perform, also struggles with donning socks and shoes d/t pain with bending of foot. Prior to injury, pt runs 3x/wk 2-3 miles each, plays volleyball once a week , hiking, and walking on the beach. Prior Treatments and X ray negative for fx Tests Treatment Goals Patient/Caregiver To reduce pain and gain range of motion to return to Goals prior activities PT-OP-C Subjective Start: 09/23/24 09:07 Freq: Status: Active Protocol: Document 10/22/24 09:24 SP (Rec: 10/22/24 10:43 SP [id number]) OP-PT Subjective Patient Comments Patient Comments Pt 24 min late for appt, had car troubles, was able to provided full appt time alloted. Ktaping helped alot with swelling reduction but would like retaped today. Pt reports stretches and SL star taps/glides added to HEP 2 tx ago helped alot. Her ankle is moving better is able to walk down stairs better now but noted L calf tight too. PT-OP-F Manual Assessment Start: 09/23/24 09:07 Freq: Status: Active Protocol: Document 09/23/24 09:08 RUNNING RIGGER (Rec: 09/23/24 11:10 RUNNING RIGGER Laptop) Manual Assessments Other Manual Assessments Other Manual normal talus mobility, pain with gentle PA to distal Assessments fibula/lateral malleolus, TTP and decreased soft tissue mobility to fibularis muscles bellies and tendons and ant tib muscle bellies and tendons. Decreased soft tissue mobility to gastroc. Mild-moderate edema to B malleoli lateral>medial with hypersensitivity around lateral malleolus PT-OP-G Mobility & Gait Start: 09/23/24 09:07 Freq: Status: Active Protocol: Document 09/23/24 09:08 RUNNING RIGGER (Rec: 09/23/24 11:10 RUNNING RIGGER Laptop) OP Gait Assessment Comments Gait Comments decreased heel strike and toe off of R foot, L hip IR, mild pronation of B feet with decreased arch support bilaterally R impaired>L, slight calcaneal valgus of B feet R>L. PT-OP-K Range of Motion Start: 09/23/24 09:07 Freq: Status: Active Protocol: Document 09/23/24 09:08 RUNNING RIGGER (Rec: 09/23/24 11:10 RUNNING RIGGER Laptop) Ankle and Foot Goniometric Range of Motion Ankle and Foot R Ankle/Foot ROM WFL No Testing Position Supine Dorsiflexion with 10 Knee Extended Plantarflexion 30 Inversion 35 Eversion 9 Comments pain to ant ankle with DF/PF, pain to lateral ankle with inversion/eversion L Ankle/Foot ROM WFL Yes Testing Position Supine Dorsiflexion with 22 Knee Extended Plantarflexion 58 Inversion 37 Eversion 15 PT-OP-M Strength Start: 09/23/24 09:07 Freq: Status: Active Protocol: Document 09/23/24 09:08 RUNNING RIGGER (Rec: 09/23/24 11:10 RUNNING RIGGER Laptop) Hip Strength Hip Manual Muscle Testing R Flexion (L2) 5 Normal Extension (S1) 4 Good Abduction 4+ Good+ External Rotation 4+ Good+ Internal Rotation 5 Normal Comments AROM WNL L Flexion (L2) 5 Normal Extension (S1) 4 Good Abduction 4+ Good+ External Rotation 5 Normal Internal Rotation 4+ Good+ Comments AROM WNL Knee Strength Knee Manual Muscle Testing R Flexion (S2) 4+ Good+ Extension (L3) 5 Normal Comments AROM WNL L Flexion (S2) 4+ Good+ Extension (L3) 5 Normal Comments AROM WNL Ankle/Foot Strength Ankle and Foot Manual Muscle Testing R Dorsiflexion (L4) 4+ Good+ Plantarflexion (S1) 4+ Good+ Inversion 4 Good Eversion (S1) 3+ Fair+ Comments mild pain with DF, pain with active PF, pain with resisted eversion L Dorsiflexion (L4) 5 Normal Plantarflexion (S1) 5 Normal Inversion 5 Normal Eversion (S1) 5 Normal Toe Strength Toe Manual Muscle Testing Right Great Toe Flexion 4 Good Extension 4 Good Comments pain with resisted ext and flex PT-OP-Q Treatments Start: 09/23/24 09:07 Freq: Status: Active Protocol: Document 10/22/24 09:24 SP (Rec: 10/22/24 10:43 SP [id number]) Gym Equipment Shuttle Balance Red Details WBOS, Stride Stance: F/B and Lateral (WBOS only) Comments 1. wt shift 2. balloon volley (1:1) Cued slow wt shift motions if able for ankle stability and comfort- no report pain just muscle tiring torsten laterally. Therapeutic Exercises Standing Exercises Dynamic eccentric calf raises Standing Exercise added to HEP: 3 foot positioning Name Side bilateral Resistance AROM Equipment Used light rail contact, bottom step Reps/Minutes 10 reps each foot position SL star taps Standing Exercise Shoes donned: Name Side right Resistance 12, 9, 6 o'clock, added 4'clock 10/22/24- good work challenge Reps/Minutes 5 sets each direction Comments challenge 4clock but no pain, cued slow pace for stability Intrinisc foot Standing Exercise 1. arch lifts 2.5 toe ext 3.5 toe ext with big toe flex Name 4.toe spreads 5. EV Side left Comments verbal review Manual Therapy Treatment Consent Patient gave verbal Yes consent for manual treatment Soft Tissue Mobilization post leg Body Location R gastroc and achiles Mobilization Type Cross-Friction,Instrument Assisted,Rolling Intensity/Depth Moderate Body Position Prone Comments manual and ed self STMs rolling pin calf, tooling manual and self, MWM achilles pincer grasp and knead, tooling achilles. ant tib Body Location R ant tib,/peroneals Mobilization Type Rolling Intensity/Depth Moderate Body Position Supine Taping Edema Body Location L ankle Treatment Focus reducing edema Type of Tape K tape Comments 2 strips with 1 anchor and 4 tails wrapped from post ankle over lateral and medial malleolus to ant/lateral foot without stretch PT-OP-T Assessment and Plan Start: 09/23/24 09:07 Freq: Status: Active Protocol: Document 10/22/24 09:24 SP (Rec: 10/22/24 10:43 SP [id number]) Physical Therapy Assessment Goals 4 Impairment Pain Residential Goal (LTG) Pt will report ability to hike outside on uneven surface for 1 hour without pain to R ankle. 10/20: Progressing, went on 10/09 (1.5 weeks ago) with pain to R ankle when stepped on rock. LTG Duration 12 weeks 3 Impairment Stair negotiation Impairment difficulty negotiating 2 flights of stairs in home Short Term Goal (STG Pt will demonstrate ability to negotiate 12x6 stairs ) without HRs with reciprocal pattern ind without pain in order to safely and easily navigate stairs in home. 8: MET, reports able to perform at home without pain. STG Duration 6 weeks MET 2 Impairment ROM Impairment On eval: R DF 10 active, PF knee extended 30 active L DF 22 active, PF knee extended 58 active Residential Goal (LTG) Pt will improve R ankle active DF to at least 20 degrees and PF to at least 50 degrees in order to improve function and return to high activity level. 85: Progressing, R active DF 19 degrees pain free, R active PF 45 degrees mild stretch pain LTG Duration 12 weeks 1 Impairment LEFS Impairment LEFS score on eval 50/80 Track Helper Goal (LTG) Pt will improve LEFS score from 50/80 to 80/80 to demonstrate improved function and ability to return to high level PLOF. 85: Progressing, 62/80 LTG Duration 12 weeks Assessment Summary Assessment Pt improved swelling reduction with Ktaping and reapplication today 1 vs 2 fan 25% tension. Progressed ther ex today eccentric heel raises 3 positions and star taps cross behind with no c/o pain just stability challenge for carryover home performance. Added standing pronation lateral foot lift for peroneal strengthening with no c/o. Declined HOs. Pt would benefit from dynamic jumps per PT plan next tx. Physical Therapy Plan Frequency and Duration Frequency of 1-2x/wk Treatment Duration of 12 treatment (weeks) Plan of Care Start 09/23/24 Date Plan of Care End 12/16/24 Date Therapeutic Interventions Therapeutic Balance Training,Gait Training,Home Exercise Program, Interventions Joint Mobilizations,Manual Therapy,Neuromuscular Re- education,Orthotic/Prosthetic Management,Soft Tissue Mobilization,Taping,Therapeutic Activities,Therapeutic Exercises Modalities Cold Pack/Ice Massage,Hot Packs,Ultrasound Next Visit Focus/Plan Next Note Type Treatment Note Next Visit Plan Recheck HEP. Progress as PT POC. POC: talus mobs and STM/cupping to ant tib as needed, shuttle balance, shuttle recovery single leg with jumping trial as tolerated, ladder drills, Vidal hops.
--- NOTE | 2024-10-27 20:45 | PT.OTN ---
Current Diagnoses Pain in right ankle and joints of right foot (10/27/24) Physical Therapy Treatment Note PT OP: Lower Back/Lower Extremity Start: 10/23/24 16:50 Freq: Status: Active Protocol: Document 10/27/24 09:58 ARTIFICIAL BREAST FABRICATOR (Rec: 10/27/24 10:41 ARTIFICIAL BREAST FABRICATOR Laptop) Out-Patient Physical Therapy Visit Information Visit Information Visit Type Treatment Note Visit Start Time 09:57 Visit Stop Time 10:31 Visit Number 7 Number of SOCIAL MEDIA STRATEGIST Visits 0 Progress Note Due 11/20/24 OP-PT Subjective Patient Comments Patient Comments Pt reports taping for edema helped to reduce edema at last session. Climbed some steep sand dunes this weekend without pain to R ankle but did feel unsteady at times. Therapeutic Exercises Supine Exercises 4-way ankle Supine Exercise Name updated TB from L1 to L3 TB Standing Exercises dynamic ankle exercise on uneven surface Standing Exercise 1. Lateral lunges from Bosu 2. BLE squats on BOSU ball Name Side bilateral Reps/Minutes x10 each leg each exercise Comments positive response without pain Soleus stretch Standing Exercise against wall Name Side bilateral Reps/Minutes 1 min each Comments VC for neutral foot placement Manual Therapy Treatment Consent Patient gave verbal Yes consent for manual treatment Soft Tissue Mobilization lateral leg Body Location R fibularis muscles Mobilization Type Instrument Assisted Intensity/Depth Moderate Body Position Sidelying Comments cupping to fibularis muscles with active inversion. significant soft tissue restriction noted all along muscle belly prior to cupping, minimal restriction only distally noted after cupping Physical Therapy Assessment Goals 4 Impairment Pain Gas Station Cashier Goal (LTG) Pt will report ability to hike outside on uneven surface for 1 hour without pain to R ankle. 10/20: Progressing, went on 10/09 (1.5 weeks ago) with pain to R ankle when stepped on rock. LTG Duration 12 weeks 3 Impairment Stair negotiation Impairment difficulty negotiating 2 flights of stairs in home Short Term Goal (STG Pt will demonstrate ability to negotiate 12x6 stairs ) without HRs with reciprocal pattern ind without pain in order to safely and easily navigate stairs in home. 10/20: MET, reports able to perform at home without pain. STG Duration 6 weeks MET 2 Impairment ROM Impairment On eval: R DF 10 active, PF knee extended 30 active L DF 22 active, PF knee extended 58 active Gas Station Cashier Goal (LTG) Pt will improve R ankle active DF to at least 20 degrees and PF to at least 50 degrees in order to improve function and return to high activity level. 85: Progressing, R active DF 19 degrees pain free, R active PF 45 degrees mild stretch pain LTG Duration 12 weeks 1 Impairment LEFS Impairment LEFS score on eval 50/80 Correction Goal (LTG) Pt will improve LEFS score from 50/80 to 80/80 to demonstrate improved function and ability to return to high level PLOF. 85: Progressing, 62/80 LTG Duration 12 weeks Assessment Summary Assessment Pt with decreased pain and soft tissue restriction after cupping with active movement to R fibularis muscles this session, tolerated dynamic ankle strengthening exercises on Bosu ball this session without pain, reports ankle feels better, no pain and a little looser and stronger after session today. Physical Therapy Plan Frequency and Duration Frequency of 1-2x/wk Treatment Duration of 12 treatment (weeks) Plan of Care Start 09/23/24 Date Plan of Care End 12/16/24 Date Next Visit Focus/Plan Next Note Type Treatment Note Next Visit Plan POC: talus mobs and STM/cupping to ant tib and fibularis muscles as needed, shuttle balance, shuttle recovery single leg with jumping trial as tolerated, ladder drills, Vidal hops, inclined treadmill
--- NOTE | 2024-10-29 10:41 | PT.OTN ---
Current Diagnoses Pain in right ankle and joints of right foot (10/29/24) Physical Therapy Treatment Note PT OP: Lower Back/Lower Extremity Start: 10/23/24 16:50 Freq: Status: Active Protocol: Document 10/29/24 09:48 AB (Rec: 10/29/24 10:41 AB [id number]) Out-Patient Physical Therapy Visit Information Visit Information Visit Type Treatment Note Visit Start Time 09:49 Visit Stop Time 10:33 Visit Number 8 Number of ARTIST'S REPRESENTATIVE Visits 1 Progress Note Due 11/20/24 OP-PT Subjective Patient Comments Patient Comments Patient reports she is not much better, but better. Patient reports jumping continues to be a problem and walking for a long time ( 4-5 hours) R ankle gets irritated. Gym Equipment Shuttle Rebound single leg Exercise Details 25# X 10 each then 50#X 10 L LE X 5 R limited by knee pain 37# R pain on * Comments * 10th rep bilateral jumps Exercise Details 25# then 50# Reps/Duration X 15 each Therapeutic Exercises Sitting Exercises AROM DF Reps/Minutes X 10 X 2 Comments verbal cues, performed post manual and stretches Standing Exercises squats Side bilateral Resistance level 4 band Reps/Minutes 15 X 2 Comments post manual and ankle stretches, monitored for pain heel raise Standing Exercise bilateral on stairs HEP Name Reps/Minutes X10 Comments post manual calf stretch on stairs Standing Exercise gastroc and soelus HEP Name Side bilateral Reps/Minutes 60 sec X 1 Comments post manual Manual Therapy Treatment Consent Patient gave verbal Yes consent for manual treatment Soft Tissue Mobilization post leg Body Location R gastroc and achiles Mobilization Type Cross-Friction,Instrument Assisted,Rolling Intensity/Depth Moderate Body Position Prone Comments cupping ant tib Body Location R ant tib,/peroneals also ant ankle Mobilization Type Cross-Friction,Instrument Assisted,Rolling Intensity/Depth Moderate Body Position Supine Comments cupping with DF Physical Therapy Assessment Goals 4 Impairment Pain Detention Goal (LTG) Pt will report ability to hike outside on uneven surface for 1 hour without pain to R ankle. 10/20: Progressing, went on 10/09 (1.5 weeks ago) with pain to R ankle when stepped on rock. LTG Duration 12 weeks 3 Impairment Stair negotiation Impairment difficulty negotiating 2 flights of stairs in home Short Term Goal (STG Pt will demonstrate ability to negotiate 12x6 stairs ) without HRs with reciprocal pattern ind without pain in order to safely and easily navigate stairs in home. 10/20: MET, reports able to perform at home without pain. STG Duration 6 weeks MET 2 Impairment ROM Impairment On eval: R DF 10 active, PF knee extended 30 active L DF 22 active, PF knee extended 58 active Chemistry Research Assistant Goal (LTG) Pt will improve R ankle active DF to at least 20 degrees and PF to at least 50 degrees in order to improve function and return to high activity level. 10/20: Progressing, R active DF 19 degrees pain free, R active PF 45 degrees mild stretch pain LTG Duration 12 weeks 1 Impairment LEFS Impairment LEFS score on eval 50/80 Chemistry Research Assistant Goal (LTG) Pt will improve LEFS score from 50/80 to 80/80 to demonstrate improved function and ability to return to high level PLOF. 10/20: Progressing, 62/80 LTG Duration 12 weeks Assessment Summary Assessment R knee pain limiting single leg jumps on shuttle this session. Good sabrina to stretches this session with no complaints of pain TC area during soleus stretch. Physical Therapy Plan Frequency and Duration Frequency of 1-2x/wk Treatment Duration of 12 treatment (weeks) Plan of Care Start 09/23/24 Date Plan of Care End 12/16/24 Date Next Visit Focus/Plan Next Note Type Treatment Note Next Visit Plan POC: talus mobs and STM/cupping to ant tib and fibularis muscles as needed, shuttle balance, shuttle recovery single leg with jumping trial as tolerated, ladder drills, Vidal hops, inclined treadmill
--- NOTE | 2024-11-06 10:51 | PT.OTN ---
Current Diagnoses Pain in right ankle and joints of right foot (11/06/24) Physical Therapy Treatment Note PT OP: Lower Back/Lower Extremity Start: 10/23/24 16:50 Freq: Status: Active Protocol: Document 11/06/24 08:16 ENGINEER SERGEANT (Rec: 11/06/24 09:05 ENGINEER SERGEANT Laptop) Out-Patient Physical Therapy Visit Information Visit Information Visit Type Treatment Note Visit Start Time 08:18 Visit Stop Time 09:03 Visit Number 9 Number of COLLECTION SYSTEMS MODELER Visits 0 Progress Note Due 11/20/24 OP-PT Subjective Patient Comments Patient Comments Pt reports she's having a little bit more pain to R ankle today, 3/10 and feels grainy. Reports she went on a 3 mile mild hike yesterday and is unsure if that is what made it hurt today. Gym Equipment Shuttle Recovery BLE Details 1. squats 2. squats with L3 TB at knees 3. BLE jumps landing ball>heel Resistance 50# Shuttle Recovery Stable Platform Reps/Time 1 &2 x10, 3. 10x2 Manual Therapy Treatment Consent Patient gave verbal Yes consent for manual treatment Soft Tissue Mobilization lateral leg Body Location R fibularis muscles Mobilization Type Instrument Assisted Intensity/Depth Moderate Body Position Long sitting Comments cupping to fibularis muscles with active DF/PF and inversion/eversion. significant soft tissue restriction noted all along muscle belly prior to cupping, minimal restriction only distally noted after cupping Joint Mobilizations MWM TC mobilization Joint R Direction ap Grade IV Body Position Standing Reps/Duration X 10 X 3 Comments active heel lifts on stairs with towel pulling at talus reports improved pain to ant ankle and able to feel soleus stretch Physical Therapy Assessment Goals 4 Impairment Pain Prison Goal (LTG) Pt will report ability to hike outside on uneven surface for 1 hour without pain to R ankle. 85: Progressing, went on 10/09 (1.5 weeks ago) with pain to R ankle when stepped on rock. LTG Duration 12 weeks 3 Impairment Stair negotiation Impairment difficulty negotiating 2 flights of stairs in home Short Term Goal (STG Pt will demonstrate ability to negotiate 12x6 stairs ) without HRs with reciprocal pattern ind without pain in order to safely and easily navigate stairs in home. 8: MET, reports able to perform at home without pain. STG Duration 6 weeks MET 2 Impairment ROM Impairment On eval: R DF 10 active, PF knee extended 30 active L DF 22 active, PF knee extended 58 active Door Clamper Goal (LTG) Pt will improve R ankle active DF to at least 20 degrees and PF to at least 50 degrees in order to improve function and return to high activity level. 10/20: Progressing, R active DF 19 degrees pain free, R active PF 45 degrees mild stretch pain LTG Duration 12 weeks 1 Impairment LEFS Impairment LEFS score on eval 50/80 Door Clamper Goal (LTG) Pt will improve LEFS score from 50/80 to 80/80 to demonstrate improved function and ability to return to high level PLOF. 10/20: Progressing, 62/80 LTG Duration 12 weeks Assessment Summary Assessment Pt with fascial restrictions to fibularis muscles improved after cupping with improved pain and recommended self fascial massage for HEP, talus hypomobility preventing stair soleus stretch, improved after talus mobs to feel stretch at achilles without restriction/pain to ant ankle. Continues to demonstrate decreased R hip weakness during squats and jumps on shuttle recovery but without pain to ankle. Gave pt L5 TB to upgrade with squats if needed by next session. Pt reports improved pain at ankle from 3/10 to 0/10 at end of session. Physical Therapy Plan Frequency and Duration Frequency of 1-2x/wk Treatment Duration of 12 treatment (weeks) Plan of Care Start 09/23/24 Date Plan of Care End 12/16/24 Date Next Visit Focus/Plan Next Note Type Treatment Note Next Visit Plan B hip strengthening, talus mobs with movement as needed , cupping as needed, single leg jumps on shuttle recovery, inclined treadmill
--- NOTE | 2024-11-10 11:47 | PT.OTN ---
Current Diagnoses Pain in right ankle and joints of right foot (11/10/24) Physical Therapy Treatment Note PT OP: Lower Back/Lower Extremity Start: 10/23/24 16:50 Freq: Status: Active Protocol: Document 11/10/24 10:47 AB (Rec: 11/10/24 11:47 AB [id number]) Out-Patient Physical Therapy Visit Information Visit Information Visit Type Treatment Note Visit Start Time 10:48 Visit Stop Time 11:34 Visit Number 10 Number of RN X RAY Visits 1 Progress Note Due 11/20/24 OP-PT Subjective Patient Comments Patient Comments Patient reports she is maybe better, ROM and in general is better, but the ankle hurts if she jumping, hiking. Patient reports clicking with ankle inversion. Therapeutic Exercises Sitting Exercises AROM DF Sitting Exercise ev and inf Name Equipment Used Level one band Reps/Minutes X15 each Comments verbal cues monitored for crepitus Standing Exercises squats Side bilateral Resistance level 4 band Equipment Used holding 10 lb weights in each UE Reps/Minutes 15 X 2 Comments monitored for pain heel raise Standing Exercise bilateral with knees straight and bent then single LE Name Reps/Minutes X 15 bilateral then X 10 single ( both for knees straight and bend Comments verbal cues Intrinisc foot Standing Exercise arch raise, great toe ext, small toes into floor Name Reps/Minutes X 5 each bilateral Comments verbal and tactile cues Manual Therapy Treatment Consent Patient gave verbal Yes consent for manual treatment Soft Tissue Mobilization post leg Body Location R gastroc and achiles Mobilization Type Cross-Friction,Instrument Assisted,Rolling Intensity/Depth Moderate Body Position Prone Comments cupping with DF ant tib Body Location R ant tib,/peroneals also ant ankle Mobilization Type Cross-Friction,Instrument Assisted,Rolling Intensity/Depth Moderate Body Position Supine Comments cupping with DF Joint Mobilizations tib fib Joint AP PA Direction IV Body Position Hooklying Reps/Duration X 10 X 4 each MWM TC mobilization Joint R Direction ap Grade IV Body Position Standing Reps/Duration X 10 X 3 Neuro Re-Education Treatment Balance Activities jumping Details bilateral Equipment X 5 X 2 Comments Verbal cues to jump softly, monitored for pain Physical Therapy Assessment Goals 4 Impairment Pain Shipwright Supervisor Goal (LTG) Pt will report ability to hike outside on uneven surface for 1 hour without pain to R ankle. 10/20: Progressing, went on 10/09 (1.5 weeks ago) with pain to R ankle when stepped on rock. LTG Duration 12 weeks 3 Impairment Stair negotiation Impairment difficulty negotiating 2 flights of stairs in home Short Term Goal (STG Pt will demonstrate ability to negotiate 12x6 stairs ) without HRs with reciprocal pattern ind without pain in order to safely and easily navigate stairs in home. 8: MET, reports able to perform at home without pain. STG Duration 6 weeks MET 2 Impairment ROM Impairment On eval: R DF 10 active, PF knee extended 30 active L DF 22 active, PF knee extended 58 active Shipwright Supervisor Goal (LTG) Pt will improve R ankle active DF to at least 20 degrees and PF to at least 50 degrees in order to improve function and return to high activity level. 85: Progressing, R active DF 19 degrees pain free, R active PF 45 degrees mild stretch pain LTG Duration 12 weeks 1 Impairment LEFS Impairment LEFS score on eval 50/80 Shipwright Supervisor Goal (LTG) Pt will improve LEFS score from 50/80 to 80/80 to demonstrate improved function and ability to return to high level PLOF. 8: Progressing, 62/80 LTG Duration 12 weeks Assessment Summary Assessment Good sabrina to bilateral jumps end of session, added weight to squats and progressed to single leg heel raise on stairs. HEP updated and additional copies to patient as she requested. Physical Therapy Plan Frequency and Duration Frequency of 1-2x/wk Treatment Duration of 12 treatment (weeks) Plan of Care Start 09/23/24 Date Plan of Care End 12/16/24 Date Next Visit Focus/Plan Next Note Type Progress Note Next Visit Plan B hip strengthening, talus mobs with movement as needed , cupping as needed, single leg jumps on shuttle recovery, inclined treadmill
--- NOTE | 2024-11-19 14:33 | PT.OPPN ---
Current Diagnoses Pain in right ankle and joints of right foot (11/19/24) Physical Therapy Progress Note PT OP: Lower Back/Lower Extremity Start: 10/23/24 16:50 Freq: Status: Active Protocol: Document 11/19/24 09:54 SHINGLE CUTTER (Rec: 11/19/24 10:42 SHINGLE CUTTER Laptop) Out-Patient Physical Therapy Visit Information Visit Information Visit Type Progress Note Visit Start Time 10:52 Visit Stop Time 10:36 Visit Number 11 Number of BENCH WORKER HELPER Visits 0 Progress Note Due 12/19/24 OP-PT Subjective Patient Comments Patient Comments Pt reports overall R ankle has been feeling better and has been doing small hikes without pain although slow. Current pain is 0/10. Gym Equipment Shuttle Recovery single LE Details RLE jumps landing ball>heel Resistance 25# Shuttle Recovery Stable Platform Reps/Time x15 without pain BLE Details BLE jumps landing ball>heel Resistance 25# Shuttle Recovery Stable Platform Reps/Time x15 without pain Shuttle Rebound single leg Exercise Details trampoline jumps RLE only, then alternating LEs Reps/Duration x20 Comments minimal pain only on alt jumps with R foot in pronation d/t edge of small trampoline bilateral jumps Exercise Details trampoline jumps BLE Reps/Duration x20 Comments without pain Therapeutic Exercises Standing Exercises Self talus mob Standing Exercise verbally instructed on self talus mob using L5 TB and Name squats, TB given Comments Added to HEP w/o HO heel raise Standing Exercise B with knee straight and stretch with heel lowered off Name step Reps/Minutes x20 Manual Therapy Treatment Consent Patient gave verbal Yes consent for manual treatment Joint Mobilizations tib fib Joint AP PA Direction IV Body Position Hooklying Reps/Duration 5x2 Talus Joint R talocrural Direction ant-post Grade III Body Position Hooklying Reps/Duration x10 Comments with hand and with hammer and nail, improved pain and range after use of hammer MWM TC mobilization Joint R Direction ap Grade IV Body Position Standing Reps/Duration 10x3 Comments using L5 TB at talus with active closed chain DF, improved pain and further range Physical Therapy Assessment Goals 4 Impairment Pain Prison Goal (LTG) Pt will report ability to hike outside on uneven surface for 1 hour without pain to R ankle. 8/5: Progressing, went on 10/09 (1.5 weeks ago) with pain to R ankle when stepped on rock. 11/19: MET, went on 3 mile hike outside without pain. LTG Duration 12 weeks MET 3 Impairment Stair negotiation Impairment difficulty negotiating 2 flights of stairs in home Short Term Goal (STG Pt will demonstrate ability to negotiate 12x6 stairs ) without HRs with reciprocal pattern ind without pain in order to safely and easily navigate stairs in home. 10/20: MET, reports able to perform at home without pain. STG Duration 6 weeks MET 2 Impairment ROM Impairment On eval: R DF 10 active, PF knee extended 30 active L DF 22 active, PF knee extended 58 active Prison Goal (LTG) Pt will improve R ankle active DF to at least 20 degrees and PF to at least 50 degrees in order to improve function and return to high activity level. 10/20: Progressing, R active DF 19 degrees pain free, R active PF 45 degrees mild stretch pain 11/19: MET, R active DF 20 degrees pain free, active PF 55 degrees mild pain to ant med and lateral foot LTG Duration 12 weeks MET 1 Impairment LEFS Impairment LEFS score on eval 50/80 Intern Retail Goal (LTG) Pt will improve LEFS score from 50/80 to 80/80 to demonstrate improved function and ability to return to high level PLOF. 10/20: Progressing, 62/80 11/19: Progressing, 77/80 LTG Duration 12 weeks Assessment Summary Assessment Pt is progressing well towards all goals, meeting pain goal for hiking on uneven surface without pain and meeting ROM goal to 20 degrees AROM DF after talus mobilizations and surpassing PF goal to 55 degrees but with mild pain to L ant ankle. Pt is progressing towards LEFS score but not yet meeting. Pt given self talus mob to perform as part of HEP and tolerated double and single leg jumping on trampoline and on shuttle balance with pain in ankle only during alt jumps on trampoline with L foot pronated on edge of small trampoline. Physical Therapy Plan Frequency and Duration Frequency of 1-2x/wk Treatment Duration of 12 treatment (weeks) Plan of Care Start 09/23/24 Date Plan of Care End 12/16/24 Date Next Visit Focus/Plan Next Note Type Treatment Note Next Visit Plan plyometrics, jumping lunges in multi directions, talus mobs as needed
--- NOTE | 2024-11-25 19:09 | PT.OTN ---
Current Diagnoses Pain in right ankle and joints of right foot (11/25/24) Physical Therapy Treatment Note PT OP: Lower Back/Lower Extremity Start: 10/23/24 16:50 Freq: Status: Active Protocol: Document 11/25/24 08:28 SCRUMMASTER (Rec: 11/25/24 09:05 SCRUMMASTER Laptop) Out-Patient Physical Therapy Visit Information Visit Information Visit Type Treatment Note Visit Start Time 08:23 Visit Stop Time 09:04 Visit Number 12 Number of BALANCE WHEEL ARM BURNISHER Visits 0 Progress Note Due 12/19/24 OP-PT Subjective Patient Comments Patient Comments Pt reports current pain 0/10, has been walking incline on treadmill without pain with slight jog for last few mins. Gym Equipment Shuttle Recovery single LE Details R and L single leg squats Resistance 100# Shuttle Recovery Stable Platform Reps/Time x15 without pain BLE Details BLE squats L4 TB around knees with slight ER Resistance 100# Shuttle Recovery Stable Platform Reps/Time x15 without pain Therapeutic Exercises Supine Exercises Nerve glides Supine Exercise Name DF at varying angles of hip and knee flex Side bilateral Equipment Used large exercise ball Reps/Minutes 10x5 Comments after cupping Sidelying Exercises Clamshells Side right Reps/Minutes x10 Comments Added to HEP without HO Hip abd Side right Reps/Minutes x10 Comments Added to HEP without HO, VC for slight ext angle Manual Therapy Treatment Consent Patient gave verbal Yes consent for manual treatment Soft Tissue Mobilization ant tib Body Location R ant tib,/peroneals also ant ankle Mobilization Type Instrument Assisted,Myofascial Release Intensity/Depth Moderate Body Position Supine Comments cupping with DF, pain improved Neuro Re-Education Treatment Balance Activities jumping Details lateral and ant/post single leg jumps Surface even Reps/Duration x15 each leg each direction Comments ~5' distance, slight instability to R ankle but without pain Physical Therapy Assessment Goals 4 Impairment Pain Golf Ball Marker Goal (LTG) Pt will report ability to hike outside on uneven surface for 1 hour without pain to R ankle. 10/20: Progressing, went on 10/09 (1.5 weeks ago) with pain to R ankle when stepped on rock. 4: MET, went on 3 mile hike outside without pain. LTG Duration 12 weeks MET 3 Impairment Stair negotiation Impairment difficulty negotiating 2 flights of stairs in home Short Term Goal (STG Pt will demonstrate ability to negotiate 12x6 stairs ) without HRs with reciprocal pattern ind without pain in order to safely and easily navigate stairs in home. 8: MET, reports able to perform at home without pain. STG Duration 6 weeks MET 2 Impairment ROM Impairment On eval: R DF 10 active, PF knee extended 30 active L DF 22 active, PF knee extended 58 active Golf Ball Marker Goal (LTG) Pt will improve R ankle active DF to at least 20 degrees and PF to at least 50 degrees in order to improve function and return to high activity level. 85: Progressing, R active DF 19 degrees pain free, R active PF 45 degrees mild stretch pain 9/4: MET, R active DF 20 degrees pain free, active PF 55 degrees mild pain to ant med and lateral foot LTG Duration 12 weeks MET 1 Impairment LEFS Impairment LEFS score on eval 50/80 Golf Ball Marker Goal (LTG) Pt will improve LEFS score from 50/80 to 80/80 to demonstrate improved function and ability to return to high level PLOF. 8: Progressing, 62/80 11/19: Progressing, 77/80 LTG Duration 12 weeks Assessment Summary Assessment Pt's slight pain to ant ankle improved with cupping to ant tib, tolerated multi directional single leg jumping without pain. Continue plyometric exercises for ankle strengthening. Pt recommended to trial progressively increased difficulty and length of hikes and light jogging. Physical Therapy Plan Frequency and Duration Frequency of 1-2x/wk Treatment Duration of 12 treatment (weeks) Plan of Care Start 09/23/24 Date Plan of Care End 12/16/24 Date Next Visit Focus/Plan Next Note Type Treatment Note Next Visit Plan plyometric activities, progress hip strengthening, single leg squats, dynamic activities standing on BOSU ball for ankle strengthening and endurance
--- NOTE | 2024-12-17 11:56 | PT.OPDS ---
Current Diagnoses Pain in right ankle and joints of right foot (11/25/24) Visit Care Team Role Provider Type Anastasiia Deluca DO Family Provider Non-Staff Primary Care Provider Specialty: Internal Medicine Address: [address] [place] [address], [id number] Email: Manish Porras DPM Attending Provider Non-Staff Referring Provider Specialty: Podiatry Address: [address] [place] [address], [phone] Email: Visit Number Visit Number 12 Discharge Summary PT OP: Lower Back/Lower Extremity Start: 10/23/24 16:50 Freq: Status: Active Protocol: Document 12/17/24 11:51 KJ (Rec: 12/17/24 11:56 KJ [id number]) Out-Patient Physical Therapy Visit Information Visit Information Visit Type Discharge Summary Visit Note initial evaluation 09/23/24 with c/o pain R ankle and joints of R foot. Seen for 12 treatment sessions. At last visit on 11/25/24 reported pain 0/10, has been walking incline on treadmill without pain and with a slight jog at end. Goals: 1. repot ability to hike outside on uneven surface 1 hour w/out pain to R ankle - met, 2. demonstrate ability to negotiate 12x6 stairs reciprocal pattern w/out pain - met, 3. LEFS score to 80/80 to demonstrate improved function and ability to return to high level PLOF almost met 77/80. Pt last seen 11/25/24, on hold due to issues with name and insurance, we called pt back on 12/02 and 12/10 leaving voicemail, no call back from patient since then therefore discharge.
== END 2024-12-21 10:25 | disposition home or self-care (01) ==
LOC: PHYS 08:15
PROVIDERS: Family Provider Student in an Organized Health Care Education/Training Program; PCP Student in an Organized Health Care Education/Training Program; Referring Provider Podiatrist Foot & Ankle Surgery; Visit Provider Podiatrist Foot & Ankle Surgery
DX: M25.571 Pain in right ankle and joints of right foot (principal)
CPT/HCPCS: 97110; 97112; 97140; 97162; 97530

== ENCOUNTER → 2025-02-12 10:17 | Outpatient (CLI) | payer OTHER, SELFPAY ==
[2025-02-12 15:14] LABS: Progesterone, Total 15.50 ng/mL
== END ==
LOC: LAB 10:18
PROVIDERS: Family Provider Student in an Organized Health Care Education/Training Program; PCP Student in an Organized Health Care Education/Training Program; Referring Provider Obstetrics & Gynecology; Visit Provider Obstetrics & Gynecology
DX: N97.0 Female infertility associated with anovulation (principal); E28.2 Polycystic ovarian syndrome
CPT/HCPCS: 36415; 84144